=== PATIENT | male | born 1965 | race African-American/Black ===

== ENCOUNTER 2024-11-17 19:20 | Inpatient (IN) | payer OTHER ==
[2024-11-17] MEDS: SODIUM CHLORIDE 0.9% 500 ML INFUS.BAG IV ONE (20:00)
[2024-11-17 20:12] LABS: HEMATOCRIT 29.4 % (40.1-51.0); MCHC 30.6 g/dl (32.3-36.5); MEAN CELL VOLUME 99.3 fl (79.0-92.2); MEAN PLT VOLUME 11.5 fl (9.4-12.4); PLATELET COUNT 327 x10^3/uL (163-337); RDW 18.1 % (12.2-16.1)
[2024-11-17] MEDS ORDERED: PIPERACILLIN/TAZOB 4.5 GM 4.5 GM/100 ML BAG IVPB ONE (20:24)
[2024-11-17] MEDS: PIPERACILLIN/TAZOB 4.5 GM 4.5 GM in DEXTROSE 5%-WATER 100 ML IVPB ONE (20:26)
[2024-11-17 20:35] LABS: VENOUS BASE EXCESS 9.2 mmol/L (-2-2); VENOUS O2 SATURATION 49.8 % (70-80); VENOUS PH 7.412 (7.310-7.410)
[2024-11-17 20:39] LABS: CHLORIDE 108 mmol/L (98-107); POTASSIUM 4.8 mmol/L (3.5-5.1); SODIUM 149 mmol/L (136-145)
[2024-11-17] MEDS ORDERED: ALBUTEROL SO4 2.5/IPRATROPIUM 0.5 INH SOL 3 ML VIAL.NEB. NEB ONE (20:39)
[2024-11-17] MEDS ORDERED: methylPREDNISolone NA SUCC 125 MG/2 ML VIAL ONE (20:40)
[2024-11-17] MEDS: methylPREDNISolone NA SUCC 125 MG/2 ML VIAL IVPB ONE (20:40)
[2024-11-17] MEDS ORDERED: VANCOMYCIN 1 GM PREMIX (F) 1 GM/200 ML BAG ONE (20:40)
[2024-11-17 20:41] LABS: ANION GAP 6 mmol/L (4-13); CALCIUM 9.4 mg/dL (8.5-10.1); CO2 35 mmol/L (21-32); GLUCOSE,RANDOM 100 mg/dL (74-106)
[2024-11-17] MEDS: SODIUM CHLORIDE 0.9% 1000 ML INFUS.BAG IV ONE (20:41)
[2024-11-17 20:42] LABS: ALBUMIN 1.6 g/dl (3.4-5.0)
[2024-11-17 20:45] LABS: CREATININE 1.8 mg/dL (0.55-1.3); SGPT/ALT 38 U/L (13-61)
[2024-11-17 20:46] LABS: BILIRUBIN,TOTAL 0.2 mg/dL (0.2-1); TOT PROT 7.5 g/dl (6.4-8.2)
[2024-11-17 20:47] LABS: ALK PHOS 175 U/L (45-117)
[2024-11-17 20:48] LABS: BLOOD UREA NITROGEN 159.9 mg/dL (7-18)
[2024-11-17 20:51] LABS: SGOT/AST 48 U/L (15-37)
[2024-11-17] MEDS: VANCOMYCIN 1,000 MG in DEXTROSE 5%-WATER - 250 ML IVPB ONE (21:06)
[2024-11-17] MEDS: ALBUTEROL SO4 2.5/IPRATROPIUM 0.5 INH SOL 3 ML VIAL.NEB. NEB ONE (21:06)
[2024-11-17 21:15] LABS: LACTIC ACID 2.6 mmol/L (0.4-2.0)
[2024-11-18] MEDS: PANTOPRAZOLE SODIUM 40 MG VIAL IVPUSH ONE (03:42)
[2024-11-18] MEDS ORDERED: SODIUM CHLORIDE 0.45% 1,000 ML IV SCH (05:00)
[2024-11-18] MEDS ORDERED: HEPARIN NA (PORCINE) 5,000 UNITS/ML 1ML VIAL SQ SCH (06:00)
[2024-11-18 06:47] LABS: ABSOLUTE IMMATURE GRANULOCYTES 0.11 x10^3/uL (0.0-0.031); BASOPHILS # 0.11 x10^3/uL (0.01-0.08); EOSINOPHIL % 0.1 % (0.8-7.0); EOSINOPHILS # 0.01 x10^3/uL (0.04-0.54); HEMATOCRIT 23.1 % (40.1-51.0); HEMOGLOBIN 6.9 g/dL (13.7-17.5); MCHC 29.9 g/dl (32.3-36.5); MEAN CELL VOLUME 100.9 fl (79.0-92.2); MEAN PLT VOLUME 11.1 fl (9.4-12.4); MONOCYTE % 2.5 % (5.3-12.2); PLATELET COUNT 291 x10^3/uL (163-337); RDW 18.1 % (12.2-16.1)
[2024-11-18 06:49] LABS: Reticulocyte % 1.33 % (0.51-1.81)
[2024-11-18 06:58] LABS: CHLORIDE 113 mmol/L (98-107); POTASSIUM 4.7 mmol/L (3.5-5.1); SODIUM 151 mmol/L (136-145)
[2024-11-18 07:05] LABS: MAGNESIUM 2.9 mg/dL (1.8-2.4)
[2024-11-18 07:06] LABS: CALCIUM 9.1 mg/dL (8.5-10.1); CREATININE 1.5 mg/dL (0.55-1.3); SGOT/AST 50 U/L (15-37); SGPT/ALT 32 U/L (13-61)
[2024-11-18 07:07] LABS: ALBUMIN 1.4 g/dl (3.4-5.0); ANION GAP 6 mmol/L (4-13); CO2 32 mmol/L (21-32); GLUCOSE,RANDOM 81 mg/dL (74-106)
[2024-11-18 07:08] LABS: TOT PROT 6.5 g/dl (6.4-8.2)
[2024-11-18 07:10] LABS: CHOLESTEROL < 50 mg/dL (50-200); PHOSPHOROUS 6.4 mg/dL (2.5-4.9)
[2024-11-18 07:12] LABS: BILIRUBIN,TOTAL 0.3 mg/dL (0.2-1); LDL CHOLESTEROL (ONLY SJRH) 14 mg/dL (5-100)
[2024-11-18 07:13] LABS: HDL CHOLESTEROL 29 mg/dL (40-60)
[2024-11-18 07:33] LABS: ALK PHOS 143 U/L (45-117); BLOOD UREA NITROGEN 142.3 mg/dL (7-18)
[2024-11-18] MEDS: ALBUTEROL SO4 2.5/IPRATROPIUM 0.5 INH SOL 3 ML VIAL.NEB. NEB SCH (08:14)
[2024-11-18] MEDS ORDERED: PANTOPRAZOLE 40 MG TABLET PO SCH (10:00)
[2024-11-18] MEDS: PIPERACILLIN/TAZOB 2.25 GM 2.25 GM/50 ML BAG IVPB SCH ×2 (11:16→12:40)
[2024-11-18] MEDS: SODIUM CHLORIDE 1,000 ML IV STA (11:16)
[2024-11-18] MEDS: PANTOPRAZOLE SODIUM 40 MG VIAL IVPUSH SCH (11:17)
[2024-11-18] MEDS: methylPREDNISolone NA SUCC 40 MG/1 ML VIAL IVPUSH SCH (11:17)
[2024-11-18] MEDS ORDERED: DEXTROSE 50%-WATER - 25 GM/50 ML VIAL IVPUSH ONE (11:53)
[2024-11-18 11:57] LABS: HEMATOCRIT 28.2 % (40.1-51.0); HEMOGLOBIN 8.6 g/dL (13.7-17.5); MCHC 30.5 g/dl (32.3-36.5); MEAN CELL VOLUME 99.3 fl (79.0-92.2); MEAN PLT VOLUME 10.3 fl (9.4-12.4); PLATELET COUNT 242 x10^3/uL (163-337)
[2024-11-18 12:16] LABS: HIV INTERPRETATION NEGATIVE (NEGATIVE)
[2024-11-18] MEDS: INSULIN ASPART SLIDING SCALE (NOVOLOG) 1 VIAL SQ SCH (12:36)
[2024-11-18] MEDS ORDERED: DEXTROSE 50%-WATER 25 GM/50 ML DISP.SYRIN IVPUSH ONE (12:45)
[2024-11-18] MEDS: DEXTROSE 5%-WATER 500 ML INFUS.BAG IVPB ONE (12:48)
[2024-11-18] MEDS: VANCOMYCIN 1 GM PREMIX (F) 1 GM/200 ML BAG IVPB SCH (12:54)
[2024-11-18] MEDS: VANCOMYCIN/WATER FOR INJ (PEG) 1 GM/200 ML BAG IVPB SCH (13:55)
[2024-11-18] MEDS: THIAMINE HCL 200 MG/2 ML VIAL IVPB SCH (13:55)
[2024-11-18] MEDS: PIPERACILLIN/TAZOB 3.375 GM 50 ML IVPB SCH (17:55)
[2024-11-18] MEDS: DEXTROSE 5%-0.45% SALINE 1,000 ML IV SCH (20:20)
[2024-11-18] MEDS: DEXTROSE 5%-0.45% SALINE 1,000 ML IV ONE (22:13)
[2024-11-18] MEDS: ATORVASTATIN CA 40 MG TABLET (FP) PO SCH (22:13)
[2024-11-18] MEDS: MIDODRINE HCL 5 MG TABLET PO SCH (22:31)
[2024-11-18] MEDS: INSULIN GLARGINE (LANTUS) 100 UNITS/ML UNITS SQ SCH (22:54)
[2024-11-19] MEDS: DEXTROSE 5%-0.45% SALINE 1,000 ML IV ONE (05:22)
[2024-11-19 07:58] LABS: HEMATOCRIT 25.6 % (40.1-51.0); HEMOGLOBIN 7.5 g/dL (13.7-17.5); MCHC 29.3 g/dl (32.3-36.5); MEAN PLT VOLUME 11.1 fl (9.4-12.4); PLATELET COUNT 199 x10^3/uL (163-337); RDW 18.3 % (12.2-16.1)
[2024-11-19 08:14] LABS: CHLORIDE 113 mmol/L (98-107); POTASSIUM 4.1 mmol/L (3.5-5.1); SODIUM 147 mmol/L (136-145)
[2024-11-19 08:19] LABS: ANION GAP 6 mmol/L (4-13); CALCIUM 7.8 mg/dL (8.5-10.1); CO2 28 mmol/L (21-32); GLUCOSE,RANDOM 321 mg/dL (74-106); MAGNESIUM 2.7 mg/dL (1.8-2.4)
[2024-11-19 08:20] LABS: ALBUMIN 1.2 g/dl (3.4-5.0)
[2024-11-19 08:23] LABS: CREATININE 1.3 mg/dL (0.55-1.3); SGOT/AST 39 U/L (15-37); SGPT/ALT 30 U/L (13-61)
[2024-11-19 08:24] LABS: BILIRUBIN,TOTAL 0.3 mg/dL (0.2-1)
[2024-11-19 08:25] LABS: ALK PHOS 132 U/L (45-117)
[2024-11-19 08:40] LABS: BLOOD UREA NITROGEN 117.2 mg/dL (7-18)
[2024-11-19] MEDS: SODIUM CHLORIDE 0.45% 1,000 ML IV SCH (17:14)
[2024-11-19] MEDS ORDERED: MIDODRINE HCL 5 MG TABLET PO SCH (21:45)
[2024-11-20 07:53] LABS: HEMATOCRIT 29.2 % (40.1-51.0); HEMOGLOBIN 8.8 g/dL (13.7-17.5); MCHC 30.1 g/dl (32.3-36.5); MEAN CELL VOLUME 99.7 fl (79.0-92.2); PLATELET COUNT 167 x10^3/uL (163-337); RDW 18.5 % (12.2-16.1)
[2024-11-20 08:10] LABS: POTASSIUM 3.9 mmol/L (3.5-5.1)
[2024-11-20 08:12] LABS: CALCIUM 8.2 mg/dL (8.5-10.1)
[2024-11-20 08:13] LABS: ALBUMIN 1.3 g/dl (3.4-5.0); MAGNESIUM 2.9 mg/dL (1.8-2.4)
[2024-11-20 08:16] LABS: CREATININE 1.1 mg/dL (0.55-1.3)
[2024-11-20 08:18] LABS: BILIRUBIN,TOTAL 0.2 mg/dL (0.2-1); TOT PROT 6.4 g/dl (6.4-8.2)
[2024-11-20 08:34] LABS: MONOCYTE # 0.28 x10^3/uL (0.30-0.82)
[2024-11-20] MEDS ORDERED: VANCOMYCIN 1 GM PREMIX (F) 1 GM/200 ML BAG IVPB SCH (09:00)
[2024-11-20] MEDS: HEPARIN NA (PORCINE) 5,000 UNITS/ML 1ML VIAL SQ SCH (10:24)
[2024-11-20] MEDS: VANCOMYCIN 1 GM PREMIX (F) 1 GM/200 ML BAG IVPB SCH (14:22)
[2024-11-21 07:00] LABS: HEMATOCRIT 27.4 % (40.1-51.0); HEMOGLOBIN 8.2 g/dL (13.7-17.5); MCHC 29.9 g/dl (32.3-36.5); MEAN CELL VOLUME 100.7 fl (79.0-92.2); MEAN PLT VOLUME 11.7 fl (9.4-12.4); PLATELET COUNT 117 x10^3/uL (163-337); RDW 18.5 % (12.2-16.1)
[2024-11-21 07:19] LABS: POTASSIUM 4.3 mmol/L (3.5-5.1)
[2024-11-21 07:23] LABS: ALBUMIN 1.2 g/dl (3.4-5.0); CALCIUM 7.7 mg/dL (8.5-10.1); MAGNESIUM 2.5 mg/dL (1.8-2.4)
[2024-11-21 07:27] LABS: CREATININE 0.9 mg/dL (0.55-1.3)
[2024-11-21 07:28] LABS: BILIRUBIN,TOTAL 0.4 mg/dL (0.2-1); TOT PROT 6.2 g/dl (6.4-8.2)
[2024-11-21] MEDS ORDERED: INSULIN ASPART SLIDING SCALE (NOVOLOG) 1 VIAL SQ ONE (07:52)
[2024-11-21] MEDS ORDERED: INSULIN GLARGINE (LANTUS) 100 UNITS/ML UNITS SQ ONE (07:52)
[2024-11-21 08:54] LABS: MONOCYTE # 0.39 x10^3/uL (0.30-0.82)
[2024-11-21] MEDS ORDERED: ACETAMINOPHEN 1000 MG/100 ML BAG IVPB PRN (12:46)
[2024-11-21] MEDS: CEFTRIAXONE 1 G/50 ML PREMIX 50 ML IVPB SCH (14:38)
[2024-11-21] MEDS: SODIUM CHLORIDE 0.45% 1,000 ML IV SCH (18:55)
[2024-11-22] MEDS: amLODIPine BESYLATE 2.5 MG TABLET (FP) GT SCH (09:35)
[2024-11-22] MEDS: INSULIN ASPART SLIDING SCALE (NOVOLOG) 1 VIAL SQ SCH (11:10)
[2024-11-22 14:35] VITALS: BMI 19.6
[2024-11-22] MEDS: SODIUM CHLORIDE 0.45% 1,000 ML IV SCH (15:29)
[2024-11-23 06:55] LABS: HEMATOCRIT 29.1 % (40.1-51.0); HEMOGLOBIN 8.4 g/dL (13.7-17.5); MCHC 28.9 g/dl (32.3-36.5); MEAN CELL VOLUME 102.1 fl (79.0-92.2); MEAN PLT VOLUME 12.5 fl (9.4-12.4); PLATELET COUNT 82 x10^3/uL (163-337); RDW 18.8 % (12.2-16.1)
[2024-11-23 07:13] LABS: POTASSIUM 4.5 mmol/L (3.5-5.1)
[2024-11-23 07:15] LABS: BLOOD UREA NITROGEN 51.6 mg/dL (7-18); CALCIUM 8.1 mg/dL (8.5-10.1)
[2024-11-23 07:16] LABS: ALBUMIN 1.3 g/dl (3.4-5.0); MAGNESIUM 2.3 mg/dL (1.8-2.4)
[2024-11-23 07:19] LABS: CREATININE 0.8 mg/dL (0.55-1.3)
[2024-11-23 07:20] LABS: BILIRUBIN,TOTAL 0.3 mg/dL (0.2-1); TOT PROT 6.7 g/dl (6.4-8.2)
[2024-11-23] MEDS ORDERED: methylPREDNISolone NA SUCC 40 MG/1 ML VIAL IVPUSH SCH (10:00)
[2024-11-23] MEDS: predniSONE 10 MG TABLET (UD) GT SCH (11:59)
[2024-11-23] MEDS: INSULIN ASPART SLIDING SCALE (NOVOLOG) 1 VIAL SQ SCH (12:10)
[2024-11-23 13:53] LABS: PH,URINE 5.5 (5.0-8.0); URINE APPEARANCE CLOUDY; URINE BILIRUBIN NEGATIVE (NEGATIVE); URINE COLOR YELLOW; URINE GLUCOSE (UA) 3+ (NEGATIVE); URINE KETONE NEGATIVE (NEGATIVE); URINE LEUK ESTERASE NEGATIVE (NEGATIVE); URINE NITRITE NEGATIVE (NEGATIVE); URINE PROTEIN TRACE (NEGATIVE); URINE UROBILINOGEN 0.2 mg/dL (0.2-1.0)
[2024-11-23] MEDS: VANCOMYCIN/WATER FOR INJ (PEG) 750 MG/150 ML BAG IVPB SCH (17:22)
[2024-11-23] MEDS: INSULIN GLARGINE (LANTUS) 100 UNITS/ML UNITS SQ SCH (21:44)
[2024-11-24 07:58] LABS: HEMATOCRIT 27.1 % (40.1-51.0); MCHC 29.5 g/dl (32.3-36.5); MEAN CELL VOLUME 100.4 fl (79.0-92.2); MEAN PLT VOLUME 12.3 fl (9.4-12.4); PLATELET COUNT 66 x10^3/uL (163-337); RDW 18.2 % (12.2-16.1)
[2024-11-24 08:16] LABS: POTASSIUM 3.6 mmol/L (3.5-5.1)
[2024-11-24 08:43] LABS: ALBUMIN 1.3 g/dl (3.4-5.0); BILIRUBIN,TOTAL 0.3 mg/dL (0.2-1); BLOOD UREA NITROGEN 39.8 mg/dL (7-18); TOT PROT 6.6 g/dl (6.4-8.2)
[2024-11-24 08:45] LABS: CALCIUM 7.7 mg/dL (8.5-10.1)
[2024-11-24 08:46] LABS: CREATININE 0.6 mg/dL (0.55-1.3); MAGNESIUM 1.9 mg/dL (1.8-2.4)
[2024-11-24] MEDS: MULTIVIT-MINERALS ORAL LIQUID GT SCH (17:59)
[2024-11-24] MEDS: ASCORBIC ACID 500 MG/5 ML UNIT DOSE CUP GT SCH (21:08)
[2024-11-25 07:07] LABS: POTASSIUM 4.1 mmol/L (3.5-5.1)
[2024-11-25 07:10] LABS: ALBUMIN 1.1 g/dl (3.4-5.0); BLOOD UREA NITROGEN 36.8 mg/dL (7-18); CALCIUM 7.6 mg/dL (8.5-10.1); MAGNESIUM 1.8 mg/dL (1.8-2.4)
[2024-11-25 07:13] LABS: CREATININE 0.5 mg/dL (0.55-1.3)
[2024-11-25 07:15] LABS: BILIRUBIN,TOTAL 0.3 mg/dL (0.2-1); TOT PROT 5.9 g/dl (6.4-8.2)
[2024-11-25 07:53] LABS: HEMOGLOBIN 7.3 g/dL (13.7-17.5); MCHC 29.2 g/dl (32.3-36.5); MEAN CELL VOLUME 101.2 fl (79.0-92.2); MEAN PLT VOLUME 12.6 fl (9.4-12.4); PLATELET COUNT 72 x10^3/uL (163-337)
[2024-11-25] MEDS: FERROUS SO4 300 MG/5 ML ORAL SOLN UNIT DOSE CUPS GT SCH (12:16)
[2024-11-25] MEDS: NAPH,MB-DB/K PH,MBDB POWDER PACKET PO ONE (12:21)
[2024-11-25] MEDS: INSULIN GLARGINE (LANTUS) 100 UNITS/ML UNITS SQ SCH (21:51)
[2024-11-25] MEDS: CARVEDILOL 12.5 MG TABLET (FP) GT SCH (21:54)
[2024-11-26 07:58] LABS: ABSOLUTE IMMATURE GRANULOCYTES 0.03 x10^3/uL (0.0-0.031); BASOPHILS # 0.01 x10^3/uL (0.01-0.08); EOSINOPHIL % 0.3 % (0.8-7.0); EOSINOPHILS # 0.02 x10^3/uL (0.04-0.54); HEMATOCRIT 22.8 % (40.1-51.0); HEMOGLOBIN 6.9 g/dL (13.7-17.5); MCHC 30.3 g/dl (32.3-36.5); MEAN CELL VOLUME 99.6 fl (79.0-92.2); MONOCYTE # 0.17 x10^3/uL (0.30-0.82); MONOCYTE % 2.8 % (5.3-12.2); PLATELET COUNT 77 x10^3/uL (163-337); RDW 17.2 % (12.2-16.1)
[2024-11-26 08:08] LABS: POTASSIUM 4.1 mmol/L (3.5-5.1)
[2024-11-26 08:16] LABS: CALCIUM 7.6 mg/dL (8.5-10.1)
[2024-11-26 08:18] LABS: ALBUMIN 1.1 g/dl (3.4-5.0); BLOOD UREA NITROGEN 33.1 mg/dL (7-18); MAGNESIUM 1.9 mg/dL (1.8-2.4)
[2024-11-26 08:20] LABS: CREATININE 0.4 mg/dL (0.55-1.3)
[2024-11-26 08:22] LABS: BILIRUBIN,TOTAL 0.2 mg/dL (0.2-1); TOT PROT 5.8 g/dl (6.4-8.2)
[2024-11-26] MEDS: MIDODRINE HCL 5 MG TABLET PO SCH (09:09)
[2024-11-26 20:29] LABS: ABSOLUTE IMMATURE GRANULOCYTES 0.03 x10^3/uL (0.0-0.031); BASOPHILS # 0.01 x10^3/uL (0.01-0.08); EOSINOPHIL % 0.3 % (0.8-7.0); EOSINOPHILS # 0.02 x10^3/uL (0.04-0.54); HEMATOCRIT 32.1 % (40.1-51.0); HEMOGLOBIN 9.8 g/dL (13.7-17.5); MCHC 30.5 g/dl (32.3-36.5); MEAN PLT VOLUME 11.8 fl (9.4-12.4); MONOCYTE # 0.23 x10^3/uL (0.30-0.82); MONOCYTE % 3.5 % (5.3-12.2); PLATELET COUNT 81 x10^3/uL (163-337); RDW 17.7 % (12.2-16.1)
[2024-11-27 04:06] LABS: FIBROSIS SCORE. 0.27 (0.00-0.21); HCV ALPHA 2 MACRO CHART 241 mg/dL (110-276); NECRO.INFLAM ACT.SCORE 0.23 (0.00-0.17); NECROINFLAM. ACTIVITY GRADE A0-A1 (.)
[2024-11-27] MEDS: BISACODYL 10 MG SUPP.RECT PR ONE (09:07)
[2024-11-27 09:45] LABS: ABSOLUTE IMMATURE GRANULOCYTES 0.01 x10^3/uL (0.0-0.031); EOSINOPHIL % 0.2 % (0.8-7.0); EOSINOPHILS # 0.01 x10^3/uL (0.04-0.54); HEMATOCRIT 27.7 % (40.1-51.0); HEMOGLOBIN 8.8 g/dL (13.7-17.5); MCHC 31.8 g/dl (32.3-36.5); MEAN CELL VOLUME 94.9 fl (79.0-92.2); MONOCYTE # 0.22 x10^3/uL (0.30-0.82); MONOCYTE % 3.9 % (5.3-12.2); PLATELET COUNT 96 x10^3/uL (163-337); RDW 17.8 % (12.2-16.1)
[2024-11-27 10:04] LABS: POTASSIUM 3.7 mmol/L (3.5-5.1)
[2024-11-27 10:05] LABS: ALBUMIN 1.2 g/dl (3.4-5.0); CALCIUM 7.3 mg/dL (8.5-10.1)
[2024-11-27 10:06] LABS: MAGNESIUM 1.8 mg/dL (1.8-2.4)
[2024-11-27 10:09] LABS: BLOOD UREA NITROGEN 26.6 mg/dL (7-18); CREATININE 0.4 mg/dL (0.55-1.3)
[2024-11-27 10:11] LABS: BILIRUBIN,TOTAL 0.3 mg/dL (0.2-1)
[2024-11-27 10:12] LABS: PHOSPHOROUS 1.9 mg/dL (2.5-4.9)
[2024-11-27] MEDS: POTASSIUM PHOSPHATE 15 MM in SODIUM CHLORIDE 250 ML IVPB ONE (13:20)
[2024-11-27] MEDS ORDERED: ALBUTEROL SO4 2.5/IPRATROPIUM 0.5 INH SOL 3 ML VIAL.NEB. NEB PRN (17:26)
[2024-11-27 18:37] LABS: ARTERIAL BLD GAS O2 SATURATION 92.5 % (95-98); ARTERIAL BLOOD GAS BASE EXCESS -0.3 mmol/L (-2-2); ARTERIAL BLOOD GAS pH 7.387 (7.350-7.450)
[2024-11-27 18:39] LABS: ALLENS TEST POSITIVE
[2024-11-27 19:03] LABS: N-TERMINAL BNP 836.1 pg/ml (5-125)
[2024-11-27 21:21] LABS: ARTERIAL BLD GAS O2 SATURATION 98.9 % (95-98); ARTERIAL BLOOD GAS BASE EXCESS -0.2 mmol/L (-2-2); ARTERIAL BLOOD GAS PO2 139.9 mmHg (80-100); ARTERIAL BLOOD GAS pH 7.454 (7.350-7.450)
[2024-11-27 21:26] LABS: ALLENS TEST POSITIVE
[2024-11-27] MEDS: CEFTAZIDIME/AVIBACTAM 2.5 GM in DEXTROSE 5%-WATER - 250 ML IVPB SCH (21:35)
[2024-11-27] MEDS: VANCOMYCIN/WATER FOR INJ (PEG) 1,000 MG/200 ML BAG IVPB ONE (23:58)
[2024-11-28] MEDS: VANCOMYCIN/WATER FOR INJ (PEG) 1,000 MG/200 ML BAG IVPB ONE
[2024-11-28] MEDS: CEFTAZIDIME/AVIBACTAM 2.5 GM in DEXTROSE 5%-WATER - 250 ML IVPB SCH (06:07)
[2024-11-28] MEDS: POLYETHYLENE GLYCOL (HEALTHYLAX) 3350 17 GM PACKET PO SCH (09:32)
[2024-11-28 09:33] LABS: ABSOLUTE IMMATURE GRANULOCYTES 0.01 x10^3/uL (0.0-0.031); EOSINOPHIL % 0.5 % (0.8-7.0); EOSINOPHILS # 0.02 x10^3/uL (0.04-0.54); HEMOGLOBIN 7.4 g/dL (13.7-17.5); MCHC 32.2 g/dl (32.3-36.5); MEAN CELL VOLUME 92.4 fl (79.0-92.2); MEAN PLT VOLUME 12.5 fl (9.4-12.4); MONOCYTE # 0.17 x10^3/uL (0.30-0.82); MONOCYTE % 3.9 % (5.3-12.2); PLATELET COUNT 94 x10^3/uL (163-337); RDW 16.2 % (12.2-16.1)
[2024-11-28 09:48] LABS: POTASSIUM 3.4 mmol/L (3.5-5.1)
[2024-11-28 09:55] LABS: BLOOD UREA NITROGEN 22.1 mg/dL (7-18)
[2024-11-28 09:56] LABS: CALCIUM 7.1 mg/dL (8.5-10.1); MAGNESIUM 1.7 mg/dL (1.8-2.4)
[2024-11-28 09:58] LABS: CREATININE 0.2 mg/dL (0.55-1.3)
[2024-11-28 10:00] LABS: BILIRUBIN,TOTAL 0.2 mg/dL (0.2-1); TOT PROT 5.1 g/dl (6.4-8.2)
[2024-11-28] MEDS: POTASSIUM PHOSPHATE 15 MM in SODIUM CHLORIDE 250 ML IVPB ONE (11:25)
[2024-11-28] MEDS: methylPREDNISolone NA SUCC 40 MG/1 ML VIAL IVPUSH SCH (11:45)
[2024-11-28] MEDS: VANCOMYCIN/WATER FOR INJ (PEG) 1,000 MG/200 ML BAG IVPB SCH (14:11)
[2024-11-29 08:13] LABS: INR 1.39 (0.83-1.09); PROTHROMBIN TIME (PATIENT) 15.3 SEC (9.7-13.0)
[2024-11-29 08:17] LABS: ABSOLUTE IMMATURE GRANULOCYTES 0.02 x10^3/uL (0.0-0.031); EOSINOPHIL % 0.2 % (0.8-7.0); EOSINOPHILS # 0.01 x10^3/uL (0.04-0.54); HEMATOCRIT 24.8 % (40.1-51.0); MCHC 32.3 g/dl (32.3-36.5); MEAN CELL VOLUME 92.9 fl (79.0-92.2); MONOCYTE # 0.26 x10^3/uL (0.30-0.82); MONOCYTE % 6.1 % (5.3-12.2); PLATELET COUNT 120 x10^3/uL (163-337)
[2024-11-29 08:27] LABS: POTASSIUM 3.3 mmol/L (3.5-5.1)
[2024-11-29 08:35] LABS: BLOOD UREA NITROGEN 22.1 mg/dL (7-18); MAGNESIUM 1.6 mg/dL (1.8-2.4)
[2024-11-29 08:38] LABS: CREATININE 0.3 mg/dL (0.55-1.3); PHOSPHOROUS 1.5 mg/dL (2.5-4.9)
[2024-11-29 08:39] LABS: BILIRUBIN,TOTAL 0.2 mg/dL (0.2-1); TOT PROT 5.6 g/dl (6.4-8.2)
[2024-11-29] MEDS: POTASSIUM CHLORIDE ORAL LIQUID 20 MEQ/15 ML GT ONE (10:01)
[2024-11-29] MEDS: POLYETHYLENE GLYCOL (HEALTHYLAX) 3350 17 GM PACKET GT SCH (10:02)
[2024-11-29] MEDS: MAGNESIUM 2GM/50ML STERILE WATER IVPB IVPB ONE (10:03)
[2024-11-29] MEDS: MIDODRINE HCL 5 MG TABLET GT SCH (10:05)
[2024-11-29] MEDS: NAPH,MB-DB/K PH,MBDB POWDER PACKET PO SCH (10:17)
[2024-11-29] MEDS ORDERED: QUEtiapine FUMARATE 25 MG TABLET PO SCH (11:45)
[2024-11-29] MEDS: QUEtiapine FUMARATE 25 MG TABLET GT SCH (11:58)
[2024-11-29] MEDS ORDERED: HEPARIN NA (PORCINE) 5,000 UNITS/ML 1ML VIAL SQ SCH (22:00)
[2024-11-29] MEDS: ATORVASTATIN CA 40 MG TABLET (FP) GT SCH (22:05)
[2024-11-30 07:10] LABS: ABSOLUTE IMMATURE GRANULOCYTES 0.01 x10^3/uL (0.0-0.031); EOSINOPHIL % 0.6 % (0.8-7.0); EOSINOPHILS # 0.02 x10^3/uL (0.04-0.54); HEMATOCRIT 22.7 % (40.1-51.0); HEMOGLOBIN 7.1 g/dL (13.7-17.5); MCHC 31.3 g/dl (32.3-36.5); MEAN CELL VOLUME 94.6 fl (79.0-92.2); MEAN PLT VOLUME 11.7 fl (9.4-12.4); MONOCYTE % 9.3 % (5.3-12.2); PLATELET COUNT 118 x10^3/uL (163-337)
[2024-11-30 07:26] LABS: POTASSIUM 3.8 mmol/L (3.5-5.1)
[2024-11-30 07:33] LABS: ALBUMIN 0.9 g/dl (3.4-5.0); BLOOD UREA NITROGEN 20.4 mg/dL (7-18); CALCIUM 7.1 mg/dL (8.5-10.1); MAGNESIUM 1.9 mg/dL (1.8-2.4)
[2024-11-30 07:35] LABS: CREATININE 0.2 mg/dL (0.55-1.3)
[2024-11-30 07:36] LABS: BILIRUBIN,TOTAL 0.2 mg/dL (0.2-1); PHOSPHOROUS 1.8 mg/dL (2.5-4.9); TOT PROT 4.9 g/dl (6.4-8.2)
[2024-11-30] MEDS: AMINO ACIDS/PROTEIN HYDROLYS 30 ML LIQUID.PKT GT SCH (16:23)
[2024-11-30 18:42] LABS: HEMATOCRIT 22.8 % (40.1-51.0); HEMOGLOBIN 7.2 g/dL (13.7-17.5); MCHC 31.6 g/dl (32.3-36.5); MEAN CELL VOLUME 94.6 fl (79.0-92.2); PLATELET COUNT 64 x10^3/uL (163-337); RDW 16.3 % (12.2-16.1)
[2024-11-30] MEDS: COLLAGENASE CLOSTRIDIUM HIST. 30 GRAMS TUBE TP SCH (20:28)
[2024-12-01 07:37] LABS: HEMATOCRIT 23.8 % (40.1-51.0); HEMOGLOBIN 7.6 g/dL (13.7-17.5); MCHC 31.9 g/dl (32.3-36.5); MEAN CELL VOLUME 94.4 fl (79.0-92.2); MEAN PLT VOLUME 11.3 fl (9.4-12.4); PLATELET COUNT 145 x10^3/uL (163-337); RDW 16.1 % (12.2-16.1)
[2024-12-01 07:57] LABS: POTASSIUM 3.9 mmol/L (3.5-5.1)
[2024-12-01 08:05] LABS: BLOOD UREA NITROGEN 19.9 mg/dL (7-18); CALCIUM 7.2 mg/dL (8.5-10.1)
[2024-12-01 08:06] LABS: MAGNESIUM 1.9 mg/dL (1.8-2.4)
[2024-12-01 08:08] LABS: CREATININE 0.2 mg/dL (0.55-1.3)
[2024-12-01 08:09] LABS: PHOSPHOROUS 1.9 mg/dL (2.5-4.9)
[2024-12-01 08:10] LABS: BILIRUBIN,TOTAL 0.2 mg/dL (0.2-1); TOT PROT 5.1 g/dl (6.4-8.2)
[2024-12-01] MEDS ORDERED: NAPH,MB-DB/K PH,MBDB POWDER PACKET PO SCH (11:45)
[2024-12-01] MEDS: NAPH,MB-DB/K PH,MBDB POWDER PACKET PO ONE (12:27)
[2024-12-02 07:18] LABS: HEMATOCRIT 26.7 % (40.1-51.0); HEMOGLOBIN 8.6 g/dL (13.7-17.5); MCHC 32.2 g/dl (32.3-36.5); MEAN CELL VOLUME 93.7 fl (79.0-92.2); MEAN PLT VOLUME 10.5 fl (9.4-12.4); PLATELET COUNT 154 x10^3/uL (163-337); RDW 15.9 % (12.2-16.1)
[2024-12-02 07:45] LABS: POTASSIUM 3.6 mmol/L (3.5-5.1)
[2024-12-02 07:48] LABS: CALCIUM 7.4 mg/dL (8.5-10.1)
[2024-12-02 07:49] LABS: ALBUMIN 1.1 g/dl (3.4-5.0); MAGNESIUM 1.4 mg/dL (1.8-2.4)
[2024-12-02 07:53] LABS: CREATININE 0.3 mg/dL (0.55-1.3); PHOSPHOROUS 2.4 mg/dL (2.5-4.9)
[2024-12-02 07:54] LABS: TOT PROT 5.5 g/dl (6.4-8.2)
[2024-12-02 07:58] LABS: BILIRUBIN,TOTAL 0.2 mg/dL (0.2-1)
[2024-12-02] MEDS: MAGNESIUM 1GM/D5W - 1 GM/100 ML IVPB IVPB ONE (12:55)
[2024-12-02] MEDS: HEPARIN NA (PORCINE) 5,000 UNITS/ML 1ML VIAL SQ SCH (12:56)
[2024-12-03 06:48] LABS: HEMATOCRIT 24.8 % (40.1-51.0); HEMOGLOBIN 8.1 g/dL (13.7-17.5); MCHC 32.7 g/dl (32.3-36.5); MEAN CELL VOLUME 92.9 fl (79.0-92.2); MEAN PLT VOLUME 10.8 fl (9.4-12.4); PLATELET COUNT 161 x10^3/uL (163-337); RDW 15.8 % (12.2-16.1)
[2024-12-03 07:03] LABS: POTASSIUM 3.8 mmol/L (3.5-5.1)
[2024-12-03 07:23] LABS: BLOOD UREA NITROGEN 18.2 mg/dL (7-18); CALCIUM 7.2 mg/dL (8.5-10.1); MAGNESIUM 1.7 mg/dL (1.8-2.4)
[2024-12-03 07:26] LABS: CREATININE 0.3 mg/dL (0.55-1.3)
[2024-12-03 07:27] LABS: PHOSPHOROUS 2.1 mg/dL (2.5-4.9)
[2024-12-03 07:28] LABS: BILIRUBIN,TOTAL 0.2 mg/dL (0.2-1); TOT PROT 5.3 g/dl (6.4-8.2)
[2024-12-03] MEDS: NAPH,MB-DB/K PH,MBDB POWDER PACKET PO SCH (09:42)
[2024-12-03] MEDS: MAGNESIUM 1GM/D5W - 1 GM/100 ML IVPB IVPB ONE (09:55)
[2024-12-04 07:27] LABS: HEMATOCRIT 25.9 % (40.1-51.0); HEMOGLOBIN 8.2 g/dL (13.7-17.5); MCHC 31.7 g/dl (32.3-36.5); MEAN CELL VOLUME 94.5 fl (79.0-92.2); PLATELET COUNT 159 x10^3/uL (163-337); RDW 16.1 % (12.2-16.1)
[2024-12-04 07:50] LABS: CALCIUM 7.7 mg/dL (8.5-10.1)
[2024-12-04 07:51] LABS: ALBUMIN 1.1 g/dl (3.4-5.0); BLOOD UREA NITROGEN 16.3 mg/dL (7-18); MAGNESIUM 1.5 mg/dL (1.8-2.4)
[2024-12-04 07:53] LABS: CREATININE 0.3 mg/dL (0.55-1.3); PHOSPHOROUS 2.4 mg/dL (2.5-4.9)
[2024-12-04 07:54] LABS: BILIRUBIN,TOTAL 0.3 mg/dL (0.2-1); TOT PROT 5.3 g/dl (6.4-8.2)
[2024-12-04] MEDS: MAGNESIUM SULFATE IN WATER 2 GM/50 ML IVPB IVPB ONE (10:31)
[2024-12-04] MEDS: NAPH,MB-DB/K PH,MBDB POWDER PACKET PO SCH (15:34)
[2024-12-04] MEDS: MAGNESIUM 2GM/50ML STERILE WATER IVPB IVPB ONE (15:35)
[2024-12-04] MEDS ORDERED: ACETAMINOPHEN 1000 MG/100 ML BAG IVPB PRN (18:23)
[2024-12-05 15:41] LABS: HEMATOCRIT 27.8 % (40.1-51.0); HEMOGLOBIN 8.9 g/dL (13.7-17.5); MEAN CELL VOLUME 93.9 fl (79.0-92.2); PLATELET COUNT 121 x10^3/uL (163-337); RDW 15.9 % (12.2-16.1)
[2024-12-05 16:01] LABS: POTASSIUM 4.4 mmol/L (3.5-5.1)
[2024-12-05 16:02] LABS: CALCIUM 7.5 mg/dL (8.5-10.1)
[2024-12-05 16:03] LABS: BLOOD UREA NITROGEN 14.3 mg/dL (7-18); MAGNESIUM 1.5 mg/dL (1.8-2.4)
[2024-12-05 16:06] LABS: CREATININE 0.2 mg/dL (0.55-1.3); PHOSPHOROUS 2.9 mg/dL (2.5-4.9)
[2024-12-05] MEDS: MAGNESIUM SULF 50% (8.12 MEQ/2 ML-1 GM VIAL) IVPB ONE (19:51)
[2024-12-06 07:45] LABS: ABSOLUTE IMMATURE GRANULOCYTES 0.02 x10^3/uL (0.0-0.031); BASOPHILS # 0.01 x10^3/uL (0.01-0.08); EOSINOPHIL % 2.4 % (0.8-7.0); EOSINOPHILS # 0.12 x10^3/uL (0.04-0.54); HEMATOCRIT 28.2 % (40.1-51.0); MCHC 31.9 g/dl (32.3-36.5); MEAN CELL VOLUME 94.9 fl (79.0-92.2); MEAN PLT VOLUME 10.6 fl (9.4-12.4); MONOCYTE # 0.31 x10^3/uL (0.30-0.82); MONOCYTE % 6.3 % (5.3-12.2); PLATELET COUNT 147 x10^3/uL (163-337); RDW 16.4 % (12.2-16.1)
[2024-12-06 08:22] LABS: POTASSIUM 3.8 mmol/L (3.5-5.1)
[2024-12-06 08:28] LABS: CALCIUM 7.7 mg/dL (8.5-10.1)
[2024-12-06 08:29] LABS: BLOOD UREA NITROGEN 14.8 mg/dL (7-18); MAGNESIUM 1.7 mg/dL (1.8-2.4)
[2024-12-06 08:32] LABS: CREATININE 0.2 mg/dL (0.55-1.3); PHOSPHOROUS 2.7 mg/dL (2.5-4.9)
[2024-12-06] MEDS: MAGNESIUM SULFATE IN WATER 2 GM/50 ML IVPB IVPB ONE (14:45)
[2024-12-06] MEDS: VANCOMYCIN/WATER FOR INJ (PEG) 750 MG/150 ML BAG IVPB SCH (14:57)
[2024-12-06 16:30] VITALS: BP 109/81; PULSE 82; RESP 16; TEMP 97.8
== END 2024-12-06 17:50 | disposition hospice, inpatient (51) | DRG 871 ==
LOC: JER 19:20 → JERBED 11-18 03:22 → J4W 11-18 08:15 → J4S 11-20 09:13
PROVIDERS: ADMIT Hospitalist; ATTEND Physician Assistant
PROC: 30233N1 Transfusion of Nonautologous Red Blood Cells into Peripheral Vein, Percutaneous Approach (ICD-10-PCS; 2024-11-26)
PROC: 05HY33Z Insertion of Infusion Device into Upper Vein, Percutaneous Approach (ICD-10-PCS; principal; 2024-12-06)
DX: A41.9 Sepsis, unspecified organism (principal); E43 Unspecified severe protein-calorie malnutrition; L89.154 Pressure ulcer of sacral region, stage 4; J18.9 Pneumonia, unspecified organism; J96.01 Acute respiratory failure with hypoxia; R53.2 Functional quadriplegia; I50.22 Chronic systolic (congestive) heart failure; L97.909 Non-pressure chronic ulcer of unspecified part of unspecified lower leg with unspecified severity; R64 Cachexia; Z68.1 Body mass index [BMI] 19.9 or less, adult; E87.0 Hyperosmolality and hypernatremia; I27.20 Pulmonary hypertension, unspecified; E11.9 Type 2 diabetes mellitus without complications; I11.0 Hypertensive heart disease with heart failure; D64.9 Anemia, unspecified; E83.42 Hypomagnesemia; E83.39 Other disorders of phosphorus metabolism; E11.65 Type 2 diabetes mellitus with hyperglycemia; D69.6 Thrombocytopenia, unspecified; D72.819 Decreased white blood cell count, unspecified; E78.5 Hyperlipidemia, unspecified; R13.10 Dysphagia, unspecified; R62.7 Adult failure to thrive
CPT/HCPCS: 0241U-QW; 36415; 36430; 36569; 36600; 71045-TC-FY; 72132-TC; 74176-TC; 74177-TC; 76775-TC; 80048; 80053; 80061; 81003; 82172; 82272; 82607; 82728; 82746; 82803; 82962; 82977; 83010; 83036; 83540; 83550; 83605; 83735; 83880; 83883; 84100; 84460; 84466; 84484; 85025; 85027; 85379; 85610; 85651; 86022; 86140; 86707; 86850; 86900; 86901; 86922; 87040; 87070; 87077; 87184; 87186; 87205; 87340; 87350; 87389; 87481; 87517; 93005; 93010; 93306-TC; 93970-TC; 94640; 94660; 97161-GP; 99285-25; E0186; G0480; J1644; P9058; Q9967